=== PATIENT | female | born 1940 | race Caucasian/White ===

== ENCOUNTER 2025-03-17 13:24 | Outpatient (CLI) | payer MEDICARE, SELFPAY | END 2025-03-17 13:25 | disposition home or self-care (01) | PROVIDERS: PCP Family Medicine; Visit Provider Family Medicine | DX: M54.16 Radiculopathy, lumbar region (principal); M51.26 Other intervertebral disc displacement, lumbar region | CPT/HCPCS: 62323; J0702; Q9966 ==

== ENCOUNTER 2025-03-29 11:13 | Emergency (ER) | payer MEDICARE, SELFPAY ==
--- OUTSIDE RECORDS SUMMARY | 2025-03-29 11:14 | XMS_ITS | Clinical Summary ---
Author Organization [employer] [facility] Address [address] [place] [id number] Care Team Providers Care Pipe Line Inspector Name Role Phone Adelaida Frances MD Primary Care Provide r Allergies Active Allergy Reactions Criticality Noted Date Comments Lisinopril Cough,Other - Descri be In Comment Field 02/21/2018 Medications VITAMINS A,C,E-ZINC-MADISON ER (Ocuvite PreserVision) 2,148 mcg-113 mg-45 mg-17.4mg tablet Take 1 Tablet by mouth once daily. 0 3 Active amLODIPine-olme sartan 5-20 mg tabIndications: HTN (hypertension) Take 1 Tablet by mouth once daily. 100 Tablet 3 5 Active gabapentin (NEURONTIN) 300 mg capsuleIndicati ons:Lumbar radicular pain Take 2 Capsules (600 mg) by mouth two times daily. If needed for nerve pain 120 Capsule 3 5 Active multivitamin (MVI) tablet Take 1 tablet by mouth once daily. 0 1 03/04/20 25 Discontinu ed(*Med complete/R egimen complete/L evel of care change) amoxicillin-cla vulanate 875-125 mg tabletIndicatio ns:Acute non-recurrent maxillary sinusitis Take 1 Tablet by mouth two times daily with meals. 20 Tablet 5 03/04/20 25 Discontinu ed(*Med complete/R egimen complete/L evel of care change) methylPREDNISol one (Medrol (Singh)) 4 mg tabletIndicatio ns:Lumbar radicular pain Take all the tablets each day together with breakfast. Take 6 tablets with breakfast the first day, then 5 tablets with breakfast the second day, etc. For 6 days until pills are gone. 21 Tablet 5 03/17/20 25 Discontinu ed(*Med complete/R egimen complete/L evel of care change) gabapentin (NEURONTIN) 300 mg capsuleIndicati ons:Lumbar radicular pain Take 1 Capsule (300 mg) by mouth two times daily. If needed for nerve pain 60 Capsule 1 5 03/26/20 25 Discontinu ed(Reorder (E-cancel not sent)) Active Problems Problem Noted Date Diagnosed Date DNAR (do not attempt resuscitation) 03/04/2025 Adenomatous colon polyp 08/28/2018 Overview (08/28/2018): Colonoscopy 08/2018 polyps, repeat in 5 years HTN (hypertension) 07/17/2017 Osteoporosis 08/18/2011 Resolved Problems Problem Noted Date Diagnosed Date Resolved Date Elevated blood pressure read ing without diagnosis of hypertension 08/02/2010 05/07/2018 Encounters Date Type Department Care Team Description 03/17/2025 2:00 PM CDT Office Visit [facility] [address] [place] [address] Gopal Tuttle MD Procedure (Left L4-5 ILESI) 03/16/2025 Travel 03/13/[address] [facility] [address] [place] [address] Adelaida Frances MD Pain 03/12/[address] [facility] [address] [facility] [place] [address] Adelaida Frances MD 1 scan: (1-Ord) [facility], LUMBAR SPINE WO CONTRAST , 03/10/2025 03/10/2025 9:15 AM CDT Office Visit [facility] [address] [place] [address] Adelaida Frances MD Musculoskeletal Problem (Right hip leg and foot pain./X-Ray results) 03/10/2025 9:00 AM CDT Ancillary Procedure [facility] [address] [place] [address] 03/10/2025 Travel 03/09/[address] [address] [place] [address] Matteo Mondragon MD OTHER (PAIN) 03/06/[address] [address] [place] [address] Matteo Mondragon MD Hip Pain/problem (right hip pain getting worse) 03/04/2025 2:15 PM CDT Office Visit [facility] [address] [place] [address] Matteo Mondragon MD Hip Pain/problem (RT - 7/12- radiating down the leg into the foot, painful and shooting ) 03/04/2025 Travel 03/04/2025 Nurse Triage [address] [address] Adelaida Frances MD Hip Pain/problem (right) 12/30/2024 2:00 PM CDT Office Visit [address] [address] Hamida De Souza [facility] Hearing [facility] (UGALDE consult) 12/30/2024 Travel from Last 3 Months Immunizations Immunization Administration Dates Next Due COVID-19 vaccine ([employer] 30mcg/0.3mL) CHAD VALDES 10/23/2020,10/02/2020 Influenza Virus, Unspecified 05/07/2018,07/17/20 17 Influenza, High-dose Inactivated 07/07/2016,07/20 Influenza, High-dose Quadriv alent Inactivated 06/28/2023,06/23/2022,06/24/2021,2019 Influenza, IIV3 (Age 6-35 mos) 07/06/2014 Influenza, IIV3 (Age >=3 years) 08/02/20 12,06/20/2011,05/18/2011,2009,08/04/2008,06/25/2007,08/01/2006 Influenza, Inactivated IIV3 (Age 65+ Years) Preserv Free 08/29/2019,05/07/2018,07/17/2017 Pneumococcal Poly,23-Valent (Pneumovax) 2006 Pneumococcal conj 13-Valent (Prevnar 13) 08/07/2015 Td (Age >=7 Years) 12/18/2009,12/19/1999, 000 Tdap 07/06/2014 Zoster (Shingrix-RZV, recombinant) 08/19/2021,,08/09/2011 Zoster (Zostavax-ZVL, live) 08/09/2011 Family History Medical History Relation Name Comments Cancer Father Bladder Hypertension Father Stroke Mother Heart Disease Sister 2 Hypertension Sister 3 Cancer-breast No Family History Cancer-ovarian No Family History Relation Name Status Comments Brother Alive epilepsy Daughter 1 Dedra [place] Alive Daughter 2 Susan Alive Father bladder cancer Mother Alive Sister 1 (Age 43) Sister 2 Sister 3 Son Navi Alive Social History Tobacco Use Types Packs/Day Years Used Date Smoking Tobacco: Never Smokeless Tobacco: Never Tobacco Cessation:Counseling Given: Yes Alcohol Use Standard Drinks/Week Comments Yes 7 (1 standard drink = 0.6 oz pur e alcohol) PHQ-2 Answer Date Recorded PHQ-2 TOTAL SCORE 2 11/21/2024 Social Connections Answer Date Recorded Do you often feel lonely or isolated from those around you? 0 08/21/2024 Financial Resource Strain Answer Date R ecorded Difficulty of Paying Living Expenses 3 08/21/2024 Difficulty of Paying Living Expenses Not on file 08/21/2024 Food Insecurity Answer Date Recorded Do you worry your food will run out before you are able to buy more? 1 08/21/2024 Transportation Needs Answer Date Record ed Does lack of transportation keep you from medica l appointments? 1 08/21/2024 Does lack of transportation keep you from work, meetings or getting things that you need? 1 08/21/2024 Housing Stability Answer Date Recorded What is your housing situation today? 1 08/21/2024 Utilities Answer Date Recorded Do you have trouble paying f or utilities (for example, heat, electricity, water, phone)? 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 Respiratory Rate 16 01/04/2015 3:05 PM CDT Oxygen Saturation 99% 03/10/2025 8:59 AM CDT Inhaled Oxygen Concentration - - Weight 61.9 kg (136 lb 8 oz) 03/10/2025 8:59 AM CDT Height 157.5 cm (5' 2) 11/21/2024 10:26 AM CDT Body Mass Index 24.97 11/21/2024 10:26 AM CDT Plan of Treatment Health Maintenance Due Date Last Done Comments RSV vaccine for adults or (1 - 1-dose 75+ series) 2016 COVID-19 vaccine series ( season) 2024 10/22/2023, 05/30/2022, 01/10/2022, Additional history exists Tetanus booster 07/06/2024 07/06/2014, 08/2009, 12/18/2009 (Completed outside of [facility]), Additional history exists Influenza Vaccine (#1) 2025 , 05/07/2018, 05/07/2018, Additional history exists BMI (ht and wt on same day) for age 18+ 11/21/2025 11/21/2024, 06/15/2023, 11/22/2022, Additional history exists Depression screening for age 12+ 11/21/2025 11/21/2024, 06/15/2023, 05/12/2022, Additional history exists Medicare Wellness for age 65+ 11/22/2025 11/21/2024, 06/15/2023, 05/12/2022, Additional history exists DEXA/DXA scan for age 65+ Completed 2013, 08/04/2011, 08/04/2011 Pneumococcal series for age 50+ Completed 08/07/2015, 2006 Zoster (shingles) series for age 50+ Completed 08/19/2021, 06/02/2021, 08/09/2011, Additional history exists Hepatitis B series for 19+ Aged Out N o longer eligible based on patient's age to complete this topic Procedures Procedure Name Priority Date/Time Associated Diagnosis Comments AMB EPIDURAL STEROID INJECTION AMANDA 03/17/2025 12:00 AM CDT Lumbar radiculopathy XR SPINE LUMBAR 3 VIEWS Routine 03/10/2025 8:49 AM CDT Lumbar radiculopathy MR SPINE LUMBAR WO Routine 03/10/2025 12 :00 AM CDT Lumbar radicular pain XR DXA BONE DENSITY 2 SITES AXIAL Routine 12/18/2013 9:49 AM CDT Osteoporosis from Last 3 Months or Most Recently Relevant to Health Maintenance Results * AMB EPIDURAL STEROID INJECTION (03/17/2025 12:00 AM CDT) us Adelaida Frances MD NEUROLOGY ORD Final Result * XR SPINE LUMBAR 3 VIEWS (03/10/2025 8:49 AM CDT) Anatomical Region Laterality Modality LUMBAR SPINE Computed Radiogr aphy 03/11/2025 3:33 PM CDT Impressions 03/11/2025 3:33 PM CDT 1. No acute osseous injuries or abnormalities are noted. Dictated by Rene Cadet MD @ 03/11/2025 3:33:32 PM Dictated by: Rene Cadet MD @ 03/11/2025 15:33:36 (Electronically Signed) Narrative 03/11/2025 3:33 PM CDT For Patients: As a result of the Cures Act, medical imaging exams and procedure reports are released immediately into your electronic medical record. You may view this report before your referring provider. If you have questions, please contact your health care provider. INDICATION: Lumbar radiculopathy TECHNIQUE: Lumbar spine radiograph 3 views COMPARISON: 03/22/2015 FINDINGS: Bone: No acute fractures or aggressive bone lesions are identified. Mild dextroscoliosis is present with apex at L1 and a Pinedo angle of 12 degrees. Severe diffuse osteopenia is noted. Bilateral facet osseous rhinitis is present at L5- S1 and L4-5. Disc: There are degenerative disc changes at L3-4, L4-5 and L5-S1. Soft tissue: Unremarkable. No radiopaque foreign bodies are seen. There is a 2 cm calcification in the right pelvis which may represent a calcified fibroid. Procedure Note Rene Cadet MD - 03/11/2025 For Patients: As a result of the Cures Act, medical imagingexams and procedure reports are released immediately into your electronicmedical record. You may view this report before your referring provider.If you have questions, please contact your health care provider. INDICATION: Lumbar radiculopathy TECHNIQUE: Lumbar spine radiograph 3 views COMPARISON: 03/22/2015 FINDINGS: Bone: No acute fractures or aggressive bone lesions are identified. Milddextroscoliosis is present with apex at L1 and a Pinedo angle of 12 degrees.Severe diffuse osteopenia is noted. Bilateral facet osseous rhinitis ispresent at L5-S1 and L4-5. Disc: There are degenerative disc changes at L3-4, L4-5 and L5-S1. Soft tissue: Unremarkable. No radiopaque foreign bodies are seen. There dian 2 cm calcification in the right pelvis which may represent a calcifiedfibroid. IMPRESSION: 1. No acute osseous injuries or abnormalities are noted. Dictated by Rene Cadet MD @ 03/11/2025 3:33:32 PM Dictated by: Rene Cadet MD @ 03/11/2025 15:33:36 (Electronically Signed) Adelaida Frances MD GENERAL IMAGING Final Result * MR SPINE LUMBAR WO (03/10/2025 12:00 AM CDT) Anatomical Region Laterality Modality Spine, LUMBAR SPINE Magnetic Res onance us Adelaida Frances MD MR Final Result * (ABNORMAL) XR DXA BONE DENSITY 2 SITES (12/18/2013 9:49 AM CDT) Anatomical Region Laterality Modality Spine, HIPS, HIPL, HIPR Other Narrative 12/19/2013 12:25 PM CDT Please see scanned document for results of this study. Procedure Note HeronNiurkaLay Raymundo - 12/19/2013 Please see scanned document for results of this study. 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
[2025-03-29 11:18] VITALS: BP 152/85; PULSE 88; RESP 18; TEMP 36.6; O2SAT 988; BMI 24.9
--- NOTE | 2025-03-29 11:28 | ED_ITS ---
HPI - Back Pain/Injury General Time Seen by Provider: 11:28 Date Seen: 03/29/25 Chief Complaint: Back Injury/Pain Stated Complaint: Back Pain Time Seen by Provider: 03/29/25 11:28 Source: patient, family, RN notes reviewed and old records reviewed Mode of arrival: ambulatory Limitations: no limitations History of Present Illness HPI Narrative: Su is a very pleasant 84-year-old female with a known disc herniation with chronic right lower back and right leg pain who comes to the emergency room for evaluation as she is unable to get comfortable. Patient notes that she had a lumbar disc herniation and has had an injection as recent as 2 weeks ago. She notes that she really has not had a lot of relief after the injection but did note that when she took steroids for the 1st 2 and half days she felt better. She is not currently on any medications and notes that she is trying to do PT and trying to stay active but her pain is increasing. It sounds like she has had evaluation by her primary physician, Dr. Tuttle, physical therapy, but has not yet seen a surgeon. No loss of bowel or bladder control or increasing weakness of the right lower extremity. She does describe some weakness in her right great toe that was noted by her installation technician previously. She has been using ice to her back as well. The pain starts in her right low back across her buttock right lateral thigh right calf and to the lateral right ankle. Occasionally it does radiate into her foot. Patient not currently on any blood thinners. Denies history of DVT or calf swelling. Denies shortness of breath. Related Data Home Medications ?Medication ?Instructions ?Recorded ?Confirmed amlodipine 5 mg-olmesartan 20 mg 1 tab PO DAILY 03/29/25 tablet gabapentin 300 mg capsule PO 03/29/25 Previous Rx's ?Medication ?Instructions ?Recorded hydrocodone 5 mg-acetaminophen 325 1 tab PO Q6H PRN pa in #14 tabs 03/29/25 mg tablet methylprednisolone 4 mg tablets in See Rx Instructions PO .COMPLEX 03/29/25 a dose pack (Medrol (Singh)) #21 ea Allergies Allergy/AdvReac Type Severity Reaction Status Date / Time No Known Drug Allergies Allergy Verified 03/29/25 11:22 Review of Systems Status of ROS: Reports: 10 or more systems reviewed and unremarkable except as noted in History and below Narrative: Presents with her [id number] who is very loving and supportive Const: Denies: fever or chills ENMT: Denies: neck pain or nasal congestion Cardio: Denies: lightheadedness Resp: Denies: cough GI: Denies: vomiting : Denies: urinary incontinence Musculo: Reports: back pain and extremity pain; Denies: neck pain or extremity swelling Integ/Breast: Reports: skin tenderness; Denies: skin swelling PFSH PFSH Social History service: No Exam Narrative: Exam Narrative: Alert and oriented. Mentation and speech normal. No respiratory distress. Heart with regular rate and rhythm. Lungs are clear. Examination of the lower extremities does show slightly decreased dorsiflexion of the right great toe. It is present but is decreased from the left. Plantar flexion of the great toe intact. Ankle flexion extension intact. Strength at the knee and hip flexion intact. Sensation is also intact. Const: Vital Signs, click to edit/add: Vital Signs - 24 hr 03/29/25 11:18 Temperature 97.9 F Pulse Rate [Right Pulse Oximeter] 88 Respiratory Rate 18 Blood Pressure [Ri ght Upper Arm] 152/85 H Pulse Oximetry 988 H Oxygen Delivery Me thod Room Air Documenting provider has reviewed patient's vital signs: yes Course Course ED Course: Patient presenting today with acute on chronic back pain with radiculopathy. No red flag symptoms today. Discussed with patient immediate pain control and then ongoing treatment. She is receptive to Toradol 15 mg IM, morphine 8 mg IM. Reevaluation(s) Reevaluation #1: Patient noted to be feeling better and is ready for discharge. Vital Signs Vital signs: Initial Vital Signs Temperature 97.9 F 03/29/25 11:18 Temperature Source Temporal Artery Scan 03/29/25 11:18 Pulse Rate 88 03/29/25 11:18 Pulse Rhythm Regular 03/29/25 11:18 Pulse Strength 3+ Normal 03/29/25 11:18 Respiratory Rate 18 03/29/25 11:18 Blood Pressure 152/85 H 03/29/25 11:18 Blood Pressure Mean 107 H 03/29/25 11:18 Blood Pressure Position Sitting 03/29/25 11:18 Pulse Oximetry 988 H 03/29/25 11:18 Oxygen Delivery Method Room Air 03/29/25 11:18 Vital Signs Temperature 97.9 F 03/29/25 11:18 Pulse Rate 88 03/29/25 11:18 Respiratory Rate 18 03/29/25 11:18 Blood Pressure 152/85 H 03/29/25 11:18 Pulse Oximetry 988 H 03/29/25 11:18 Oxygen Delivery Method Room Air 03/29/25 11:18 Temperature 97.9 F 03/29/25 11:18 Pulse Rate 88 03/29/25 11:18 Respiratory Rate 18 03/29/25 11:18 Blood Pressure 152/85 H 03/29/25 11:18 Pulse Oximetry 988 H 03/29/25 11:18 Oxygen Delivery Method Room Air 03/29/25 11:18 Medications Administered Medications: Discontinued Medications Generic Name Dose Route Start Last Admin Trade Name Jermanq PRN Reason Stop Dose Admin Ketorolac Tromethamine 15 mg 03/29/25 12:00 03/29/25 11:56 Ketorolac 15 Mg/Ml Inj IM 03/29/25 12:01 15 mg ONCE ONE Administration Morphine Sulfate 8 mg 03/29/25 11:45 03/29/25 11:57 Morphine 10 Mg/Ml Inj IM 03/29/25 11:46 8 mg ONCE ONE Administration MDM - Back Pain/Injury MDM Narrative Medical decision making narrative: 1. Acute on chronic back pain with radiculopathy-no red flag symptoms and weakness of the right great toe seems to be chronic. patient received morphine 8 mg, Toradol 15 mg and is feeling better.Will discharge her home with plans to start a Medrol Dosepak today. For ongoing pain, [place] 5/325 1-2 tabs p.o. q.6 hours p.r.n. pain. 14. Tablets. Further pain medication will need to go through primary MD. Recommend ongoing icing of the low back. During use of prednisone suggest omeprazole 20 mg daily for stomach protection. Because of [place] use and tendency to cause constipation do recommend stool softener daily. 2. Disposition-home at this time-return for increasing pain, increasing weakness, loss of bowel or bladder control, and as needed. Follow-up with primary MD. Consider referral to surgeon for evaluation. Medical Records Attestation: I reviewed the patient's medical records. Discharge Plan Discharge Clinical Impression: Lumbar radiculopathy, Back pain Patient Disposition: Home, Self-Care Condition: Improved Additional Instructions: Start Medrol Dosepak (steroids) today. You may use [place] also known as Vicodin which is a combination of hydrocodone in narcotic and Tylenol for discomfort. Please be aware that this can cause constipation so I would go ahead and start on a stool softener. Pain, steroids, anti-inflammatories can cause gastritis or irritation of the stomach. Suggest use of omeprazole 1 tablet daily for stomach protection Follow-up with your primary MD or with a phone call to Dr. Tuttle as needed. I do suggest you contact a surgeon for this particular discomfort. Return to the emergency room for loss of bowel or bladder control, numbness of the genital area, worsening weakness in the leg. Prescriptions: New methylprednisolone [Medrol (Singh)] 4 mg tablets,dose pack See Rx Instructions .ROUTE .COMPLEX Qty: 21 0RF Rx Instructions: for 6 days hydrocodone-acetaminophen 5-325 mg tablet 1 tab PO Q6H PRN (Reason: pain) Qty: 14 0RF Rx Instructions: May take 1-2 tabs every 6 hours as needed for pain. No Action gabapentin 300 mg capsule PO amlodipine-olmesartan 5-20 mg tablet 1 tab PO DAILY Follow Up/Referrals: Adelaida Frances MD [Primary Care Provider, Family Practice] Stand Alone Forms: [employer] Info Instructions
== END 2025-03-29 12:30 | disposition home or self-care (01) ==
LOC: ED 11:59
PROVIDERS: Emergency Provider Family Medicine; PCP Family Medicine
DX: M54.16 Radiculopathy, lumbar region (principal); M79.604 Pain in right leg
CPT/HCPCS: 96372; 99284; J1885; J2270